=== PATIENT | female | born 1990 | race Caucasian/White ===

== ENCOUNTER 2016-12-27 00:37 | Inpatient (IN) | payer MEDICAID, OTHER ==
[~2016-12-27] VITALS: Ht 167.6 cm; Wt 99.8 kg
[2016-12-27 00:49] VITALS: BP 134/74
--- NOTE | 2016-12-27 01:26 | NUR ---
TO ER BED 6
--- NOTE | 2016-12-27 01:33 | NUR ---
PT BIB SELF C/O FEVER, BODYACHES , LOWER BACK PAIN, LOW ABD PAIN S/P N/V FOR 2 -3 DAYS. SHE TOOK TYLENOL AT 2300HOURS.SHE USED METH 2 DAYS AGO. LMP 08/25/16, UA HCG POS. NEG VAG BLEEDING, POS LOW ABD CRAMPING. PT DENIES TRUAMA; SKIN IS INTACT, PALE/WARM/DRY; AAOX4, PERRL, WITH EVEN AND STEADY GAIT; LUNGS CLEAR BL, BREATHING UNLABORED; HR EVEN AND REGULAR, BL PERIPHERAL PULSES PRESENT; BS ACTIVE X4, NO TENDERNESS TO PALPATION. PT DENIES ANY CP, SOB, OR COUGH AT THIS TIME; PT STATES 10/10 PAIN AT THIS TIME; VSS; PATIENT POSITIONED FOR COMFORT; HOB ELEVATED; BEDRAILS UP X2; BED DOWN. ER MD TO ELIZABETH, ALL ORDER EXECUTED.
--- NOTE | 2016-12-27 01:34 | NUR ---
PT ADMITED TO SMOKING METH TWO DAYS AGO. ER NOTIFTED.
--- NOTE | 2016-12-27 01:52 | NUR ---
Patient being evaluated by physician at bedside.
--- NOTE | 2016-12-27 01:55 | NUR ---
ER MD DR BRYAN AT BEDSIDE FOR EVAL
[2016-12-27] MEDS ORDERED: MORPHINE SULFATE 2 MG/ML SYR IVP ONE (02:00)
--- NOTE | 2016-12-27 02:08 | NUR ---
LAB AT BEDSIDE, BLOOD SENT, UA SENT.
[2016-12-27 02:13] LABS: HEMOGLOBIN 12.2 g/dL (12.0-16.0); RED CELL DISTRIBUTION WIDTH 14.2 % (11.6-13.7)
[2016-12-27 02:20] LABS: HEMATOCRIT 35.7 % (36-48); MEAN CORPUSCULAR HEMOGLOBIN 30 pg (27-31); MEAN CORPUSCULAR HGB CONC 34 g/dL (33-37); MEAN CORPUSCULAR VOLUME 87 fL (80-94); PLATELET COUNT (AUTO) 143 K/uL (140-450); RED BLOOD CELL COUNT(AUTO) 4.13 MIL/uL (4.20-5.40)
[2016-12-27 02:28] LABS: APPEARANCE,URINE CLOUDY (CLEAR); BILIRUBIN,URINE NEGATIVE (NEGATIVE); BLOOD, URINE 1+ (NEGATIVE); COLOR,URINE ORANGE (YELLOW); LEUKOCYTE ESTERASE ,URINE TRACE (NEGATIVE); NITRITE, URINE NEGATIVE (NEGATIVE); PROTEIN,URINE 2+ (NEGATIVE); UGLUCOSE NEGATIVE (NEGATIVE)
[2016-12-27 02:35] LABS: ALBUMIN 2.7 g/dL (3.4-5.0); ANION GAP 14.5 (8-16); CALCIUM 8.7 mg/dL (8.5-10.1); CARBON DIOXIDE 24.2 mmol/L (21-32); CREATININE 0.7 mg/dL (0.6-1.3); POTASSIUM 3.7 mmol/L (3.5-5.1); TOTAL BILIRUBIN 0.4 mg/dL (0.0-1.0)
[2016-12-27 02:41] LABS: BAND % (MANUAL) 37 % (0-8); LYMPHOCYTES % (MANUAL) 7 % (20-46); MONOCYTES % (MANUAL) 1 % (5-12); NEUTROPHILS % (MANUAL) 55 (43-65)
[2016-12-27] MEDS ORDERED: NACL 0.9% 1,000 ML IV ONE ×2 (02:55→05:00)
[2016-12-27 03:05] LABS: BACTERIA,URINE 4+ /HPF (None Seen); WBC,URINE TOO MANY TO COUNT /HPF (0-5)
[2016-12-27 03:06] LABS: MUCUS,URINE 4+ /LPF (None Seen); SQUAMOUS EPITHELIAL CELL,UR 80-100 /LPF (0-3 (FEW))
[2016-12-27 03:38] LABS: LACTIC ACID 1.2 mmol/L (0.4-2.0)
[2016-12-27] MEDS ORDERED: cefTRIAXone 1,000 MG VIAL ONE (04:43)
--- NOTE | 2016-12-27 04:47 | NUR ---
Patient appears to be resting comfortably in bed. Vital Signs within normal limits. Respirations even and unlabored.
[2016-12-27] MEDS ORDERED: ACETAMINOPHEN 325 MG TAB PO ONE (05:25)
[2016-12-27] MEDS ORDERED: DOCUSATE SODIUM 100 MG GELCAP PO PRN (05:35)
[2016-12-27] MEDS ORDERED: HYDROcodone/APAP 7.5/325 MG 1 TAB PO PRN (05:35)
[2016-12-27] MEDS ORDERED: PROMETHAZINE 25 MG/ML VIAL IVP PRN (05:35)
--- NOTE | 2016-12-27 06:04 | NUR ---
Patient will be admitted to care of DR. HERNANDEZ. Admited to TELEMETRY. Will go to room 123 B. Belongings list completed. Report to HUAN HALE.
[2016-12-27 06:10] VITALS: BP 121/55
--- NOTE | 2016-12-27 06:10 | NUR ---
Admitted from ER, with chief complaint of BODY ACHES AND FEVER, DX PYELONEPHRITIS. 26 y/o, Female, Cooperative, AOX4, AMBULATORY, ABLE TO VERBALIZE NEEDS. PT C/O FEELING VAGINAL DISCOMFORT AND FEELING BLOATED. VITAL SIGNS NOTED: 102.1 TEMP, BP121/55, 124 HR, 20 RR, 99% SPO2 AT ROOM AIR. IV ACCESS TO LEFT HAND 22G AND LEFT FOREARM 20G; IV SITES ASYMPTOMATIC, PATENT AND INTACT. IVF INFUSING WELL. oriented to call light, bed, phone,television, bathroom, smoking policy, visiting hours, procedures, ID bracelet on. Belongings list checked. SAFETY MEASURES ENSURED. CALL LIGHT WITHIN REACH. WILL ENDORSE TO AM NURSE TO FINISH ADMISSION.
[2016-12-27 07:01] LABS: PARTIAL THROMBOPLASTIN TIME 32.7 secs (22-35.6); PROTHROMBIN TIME 10.6 secs (10.8-13.4)
--- NOTE | 2016-12-27 07:22 | NUR ---
RECEIVED PT IN BED, ASLEEP. AROUSABLE TO VOICE. ALERT ORIENTED X4. NO SOB NOTED. DENIES ANY PAIN OR DISCOMFORT ATT HIS TIME. POSITIVE BOWEL SOUNDS NOTED ON FOUR QUADRANTS. PT AMBULATORY. SAFETY PRECAUTION IN PLACE. CALL LIGHT WITHIN REACH. COOLING MEASURE IN PLACE DUE TO INCREASED TEMPERATURE.
[2016-12-27 07:28] LABS: CHOL/HDL RATIO 1.7 (1-4.5); FREE T4 (FREE THYROXINE) 1.03 ng/dL (0.76-1.46); MAGNESIUM 1.5 mg/dL (1.8-2.4); PHOSPHORUS 4.3 mg/dL (2.5-4.9); THYROID STIMULATING HORMONE 0.53 uIU/mL (0.34-3.74)
--- NOTE | 2016-12-27 07:28 | NUR ---
ENDORSED PLAN OF CARE TO AM NURSE. CONDITION STABLE.
[2016-12-27 08:00] VITALS: BP 126/70
--- NOTE | 2016-12-27 08:47 | NUR ---
PT MORE AWAKE NOW. VERBALIZED SHE FEELS HER FEVER WENT DOWN. CONSUMED 50% OF HER BREAKFAST.
[2016-12-27] MEDS: MULTIVIT/MIN/CA/FE/FA 1 TAB PO SCH (08:54)
[2016-12-27] MEDS: LACTOBACILLUS RHAMNOSUS GG 1 EACH CAP PO SCH (08:54)
--- NOTE | 2016-12-27 10:21 | NUR ---
Social Service Note: Chart reviewed, no discharge needs identified. Addendum: 12/27/16 at 1059 by Abbi Glynn SS please disregard above note, wrong patient.
--- NOTE | 2016-12-27 11:30 | NUR ---
DR. YEUNG, CAME TO SEE PT. AND MADE AWARE OF THE HEART RATE OF PT RANGING FROM 125-132BPM.
[2016-12-27] MEDS: ACETAMINOPHEN 325 MG TAB PO PRN ×2 (11:41→17:38)
--- NOTE | 2016-12-27 11:45 | NUR ---
ASSISTED PT TO THE BATHROOM. AMBULATING OK, ON STAND BY ASSIST. PT HAVE A TEMPERATURE OF 102.4. MEDICATED PRN TYLENOL FOR FEVER. COOLING MEASURES PROVIDED. PT KEPT CLEAN, DRY AND COMFORTABLE. WILL MONITOR TEMPERATURE.
[2016-12-27 12:00] VITALS: BP 124/55
[2016-12-27] MEDS: NACL 0.9% 1,000 ML IV SCH ×2 (12:13→12:52)
[2016-12-27] MEDS ORDERED: ONDANSETRON 4 MG/2 ML VIAL IVP PRN (12:30)
[2016-12-27] MEDS: MORPHINE SULFATE 2 MG/ML SYR IVP PRN ×2 (12:53→17:38)
--- NOTE | 2016-12-27 13:02 | NUR ---
BROUGHT PATIENT SOME MORE ICE PACKS. PT EATING HER LUNCH RIGHT NOW TOLERATED WELL. ASKED FOR PRN PAIN MEDICATION FOR HIS GENERALIZED PAIN. RECHECKED TEMP AT 98.8. ASSISTED PT TO THE BATHROOM. PT AMBULATING OK.
--- NOTE | 2016-12-27 14:14 | NUR ---
ASSISTED PT GOING TO THE BATHROOM. PT VERBALIZED RELIEF FROM GENERALIZED BODY PAIN. AMBULATED AROUND THE HALLWAY WITH STANDBY ASSIST.
[2016-12-27 14:51] LABS: HEMATOCRIT 33.7 % (36-48); HEMOGLOBIN 11.3 g/dL (12.0-16.0); MEAN CORPUSCULAR HEMOGLOBIN 29 pg (27-31); MEAN CORPUSCULAR HGB CONC 34 g/dL (33-37); MEAN CORPUSCULAR VOLUME 87 fL (80-94); PLATELET COUNT (AUTO) 123 K/uL (140-450); RED BLOOD CELL COUNT(AUTO) 3.86 MIL/uL (4.20-5.40); RED CELL DISTRIBUTION WIDTH 14.3 % (11.6-13.7); WHITE BLOOD COUNT (AUTO) 16.9 K/uL (4.8-10.8)
[2016-12-27 15:00] LABS: ANION GAP 13.9 (8-16); CALCIUM 8.2 mg/dL (8.5-10.1); CARBON DIOXIDE 20.8 mmol/L (21-32); CREATININE 0.5 mg/dL (0.6-1.3); POTASSIUM 3.7 mmol/L (3.5-5.1)
[2016-12-27 15:12] LABS: BAND % (MANUAL) 32 % (0-8); LYMPHOCYTES % (MANUAL) 4 % (20-46); MONOCYTES % (MANUAL) 2 % (5-12); NEUTROPHILS % (MANUAL) 62 (43-65)
[2016-12-27 15:13] LABS: PLATELET ESTIMATE DECREASED
[2016-12-27 16:00] VITALS: BP 126/77
--- NOTE | 2016-12-27 17:53 | NUR ---
PT VERBALIZED SHE DOES NOT FEEL WELL AGAIN, SHE FEELS HOT AND GENERALIZED PAIN IS COMING BACK. CHECKED PT'S TEMPERATURE AT 100.4. MEDICATED TYLENOL FOR FEVER 100.4 ORDERED. AND MORPHINE 2MG IVP FOR SEVERE PAIN OF 10/10. COOLING MEASURES PROVIDED TO PT. BOYFRIEND AT BEDSIDE. WILL MONITOR TEMPERATURE.
--- NOTE | 2016-12-27 18:30 | NUR ---
RECHECKED PT'S TEMPERATURE IT WENT DOWN TO 99.6. PT COMPLAINED OF SEVERE PAIN ON HER LOWER ABDOMEN, AND PREVIOUSLY ADMINISTERED MORPHINE IVP DIDN'T HELP HER WITH HER PAIN. PT WAS SCREAMING. COMPLAINING OF CONTRACTION LIKE PAIN THAT COMES AND GOES. CALLED DR. MAX MARX AT [phone], AND MADE AWARE WITH NEW ORDERS MADE AND CARRIED OUT. CALLED L&D FOR TRANSFER PER MD ORDER. L&D WILL COME AND EVALUATE PT FIRST. WASTE WATER OPERATOR AUBREY CALLED AND SHE SAID THAT SHE WILL COME TO DO ULTRASOUND OF PATIENT, PER MD ORDER. AWAITING L&d STAFF FOR EVALUATION OF PT.
--- NOTE | 2016-12-27 19:20 | NUR ---
RECEIVED REPORT FROM HUAN HERNANDEZ AT BEDSIDE. INITIAL ASSESSMENT COMPLETED. PT AAOX4. SIGNIFICANT OTHER AT BEDSIDE. PT HAS IV ON LEFT FOREARM 20 G AND LEFT HAND 22G BOTH ASYMPTOMATIC, PATENT AND INTACT. PT'S SKIN IS INTACT. VS STABLE. ORIENTED PT TO ROOM AND SURROUNDINGS AND USE OF CALL LIGHT. EXPLAINED PLAN OF CARE TO PT AND SHE VERBALIZES UNDERSTANDING. CALL LIGHT WITHIN REACH.
[2016-12-27] MEDS ORDERED: SUCRALFATE 1 GM TAB PO PRN (19:30)
--- NOTE | 2016-12-27 19:35 | NUR ---
PT KEPT CLEAN DRY AND COMFORTABLE. STILL COMPLAINING OF ABDOMINAL DISCOMFORT. ENDORSED TO NEXT SHIFT REGARDING PLANS/ ORDER FOR TRANSFER, AND TO LET DR. MARX KNOW REGARDING RESULT OF ULTRASOUND FOR FURTHER ORDER. ENDORSED PT TO NEXT SHIFT FOR CONTINUITY OF CARE.
--- NOTE | 2016-12-27 20:25 | NUR ---
PT COMPLAINING OF HAVING CONTRACTIONS. ALLOCATIONS CLERK AT BEDSIDE.
--- NOTE | 2016-12-27 20:30 | NUR ---
PT CRYING STATING THAT SHE HAS CONTRACTIONS. CERTIFICATION OFFICER EVA STATES THAT SHE SEES PT'S CERVIX DILATED. WATER QUALITY SPECIALIST AND DR Raymundo MARX AWARE. WILL FOLLOW UP ON ORDERS.
--- NOTE | 2016-12-27 20:40 | NUR ---
DR. Autumn MARX AT BEDSIDE WITH LABOR AND DELIVERY NURSE.
--- NOTE | 2016-12-27 20:50 | NUR ---
ULTRASOUND REPORT RESULTS GIVEN TO DR. RADHA MARX. LABOR AND DELIVERY NURSE AT BEDSIDE WITH PT. LABOR AND DELIVERY NURSE ADMINISTERING MEDICATION TO STOP CONTRACTIONS.
[2016-12-27] MEDS ORDERED: TERBUTALINE 1 MG/ML VIAL SUBQ ONE (21:00)
--- NOTE | 2016-12-27 21:35 | NUR ---
PT TRANSFERRED TO LABOR AND DELIVERY. PT REFUSED TO TAKE NIGHT MEDS.
[2016-12-27] MEDS ORDERED: LACTATED RINGERS 1,000 ML IV SCH (22:00)
[2016-12-27] MEDS ORDERED: MORPHINE SULFATE 10 MG/ML SYR IVP PRN (23:15)
[2016-12-27] MEDS ORDERED: MORPHINE SULFATE 10 MG/ML SYR ONE (23:47)
[2016-12-28 00:57] VITALS: BP 130/68
[2016-12-28] MEDS ORDERED: OXYTOCIN 20 UNITS/LR PREMIX 1,000 ML IV ONE ×2 (05:40→08:06)
--- NOTE | 2016-12-28 06:53 | NUR ---
PATIENT HAS BEEN SCREENED AND CATEGORIZED HIGH NUTRITION RISK. PATIENT WILL BE SEEN WITHIN 1-2 DAYS OF ADMISSION. 12/27/16-12/28/16 PREMA WATTS MS, RDN
[2016-12-28] MEDS ORDERED: CARBOPROST 250 MCG/ML AMP IM ONE (06:56)
[2016-12-28 07:04] LABS: HEMATOCRIT 30.3 % (36-48); HEMOGLOBIN 10.1 g/dL (12.0-16.0); MEAN CORPUSCULAR HEMOGLOBIN 29 pg (27-31); MEAN CORPUSCULAR HGB CONC 33 g/dL (33-37); MEAN CORPUSCULAR VOLUME 87 fL (80-94); PLATELET COUNT (AUTO) 124 K/uL (140-450); RED CELL DISTRIBUTION WIDTH 14.7 % (11.6-13.7); WHITE BLOOD COUNT (AUTO) 11.1 K/uL (4.8-10.8)
--- NOTE | 2016-12-28 07:15 | NUR ---
PATIENT WAS INITIALLY SCREENED HIGH AND THEN PATIENT WAS TRANSFERRED TO L& AFTER INITIAL SCREEN WAS DONE. RESCREEN ADDENDUM: PATIENT HAS BEEN RESCREENED AND RE-CATEGORIZED LOW RISK D/T PATIENT TRANSFERRED TO L&D. PATIENT WILL BE SEEN WITHIN 1-2 DAYS OF CHANGE IN MEDICAL STATUS. 02/26/16-02/27/16 BETTY WATTS MS, RDN Addendum: 12/28/16 at [address] PATIENT WAS INITIALLY SCREENED HIGH AND THEN PATIENT WAS TRANSFERRED TO L& AFTER INITIAL SCREEN WAS DONE. RESCREEN ADDENDUM: PATIENT HAS BEEN RESCREENED AND RE-CATEGORIZED LOW RISK D/T PATIENT TRANSFERRED TO L&D. PATIENT WILL BE SEEN WITHIN 1-2 DAYS OF CHANGE IN MEDICAL STATUS. 12/29/16-12/30/16 BETTY WATTS MS, RDN
[2016-12-28 07:21] LABS: ANION GAP 12.7 (8-16); CALCIUM 7.6 mg/dL (8.5-10.1); CARBON DIOXIDE 21.8 mmol/L (21-32); CREATININE 0.5 mg/dL (0.6-1.3); POTASSIUM 3.5 mmol/L (3.5-5.1)
[2016-12-28 07:26] LABS: MAGNESIUM 1.4 mg/dL (1.8-2.4); PHOSPHORUS 2.2 mg/dL (2.5-4.9)
[2016-12-28] MEDS ORDERED: SEVOFLURANE 250 ML BTL INH ONE (08:03)
[2016-12-28] MEDS ORDERED: ONDANSETRON 4 MG/2 ML VIAL ONE (08:03)
[2016-12-28] MEDS ORDERED: KETOROLAC 30 MG/ML VIAL ONE (08:03)
[2016-12-28] MEDS ORDERED: PROPOFOL 200 MG/20 ML VIAL IV ONE (08:03)
[2016-12-28] MEDS ORDERED: DEXAMETHASONE 4 MG/ML VIAL ONE (08:03)
[2016-12-28] MEDS ORDERED: MORPHINE SULFATE 4 MG/ML SYR IM/IVP PRN (08:10)
[2016-12-28] MEDS ORDERED: ONDANSETRON 4 MG/2 ML VIAL IVP PRN (08:10)
[2016-12-28] MEDS ORDERED: IBUPROFEN 800 MG TAB PO PRN (08:10)
[2016-12-28] MEDS ORDERED: ACETAMINOPHEN/CODEINE 300/30MG 1 TAB PO PRN (08:10)
[2016-12-28] MEDS ORDERED: fentaNYL 0.05 MG/ML VIAL ONE (08:16)
[2016-12-28 08:54] LABS: BAND % (MANUAL) 19 % (0-8); LYMPHOCYTES % (MANUAL) 5 % (20-46); MONOCYTES % (MANUAL) 2 % (5-12); NEUTROPHILS % (MANUAL) 74 (43-65); PLATELET ESTIMATE ADEQUATE
[2016-12-28 10:21] LABS: T4 (THYROXINE) 11.1 ug/dL (4.5-12.0)
[2016-12-28] MEDS: LACTOBACILLUS RHAMNOSUS GG 1 EACH CAP PO SCH (12:00)
[2016-12-28] MEDS: PANTOPRAZOLE 40 MG TABEC PO SCH (12:00)
[2016-12-28] MEDS: DOCUSATE SODIUM 100 MG GELCAP PO SCH ×2 (12:00→21:00)
[2016-12-28 12:23] LABS: HEMOGLOBIN A1C 5.4 % (4.8-5.6)
--- NOTE | 2016-12-28 14:37 | NUR ---
Social Service Note: I was informed by HUAN Campbell, patient was requesting to speak with me because she was unsure if she should have a service for her baby. I met with patient at bedside. She stated she is waiting for her significant other to come to hospital so they can decide if they want to make burial arrangements or not. She inquired how much it cost for a burial and cremation. I offered to call one of the homes , she stated she would appreciate if I did. I called [facility] and spoke with Lucy. Per Lucy, the cost of a burial is about $1,200 excluding services and cemetery and about $900 for cremation, excluding services, I provided patient with this information. I also provided her with a list of homes. She thanked me and stated she would like her nurse know her decision once she speaks with her significant other, I informed patient's nurse Miroslava of this.
[2016-12-28] MEDS ORDERED: MAGNESIUM OXIDE 400 MG TAB PO ONE (17:15)
[2016-12-29 07:24] LABS: HEMATOCRIT 27.7 % (36-48); MEAN CORPUSCULAR HEMOGLOBIN 28 pg (27-31); MEAN CORPUSCULAR HGB CONC 33 g/dL (33-37); MEAN CORPUSCULAR VOLUME 87 fL (80-94); PLATELET COUNT (AUTO) 132 K/uL (140-450); RED BLOOD CELL COUNT(AUTO) 3.19 MIL/uL (4.20-5.40); RED CELL DISTRIBUTION WIDTH 14.6 % (11.6-13.7); WHITE BLOOD COUNT (AUTO) 10.4 K/uL (4.8-10.8)
[2016-12-29 07:39] LABS: MAGNESIUM 1.7 mg/dL (1.8-2.4); PHOSPHORUS 2.9 mg/dL (2.5-4.9)
[2016-12-29 08:13] LABS: NEUTROPHILS % (MANUAL) 66 (43-65)
[2016-12-29 08:14] LABS: BAND % (MANUAL) 16 % (0-8)
[2016-12-29 08:15] LABS: LYMPHOCYTES % (MANUAL) 16 % (20-46)
[2016-12-29 08:16] LABS: PLATELET ESTIMATE SLIGHTLY DECREASED
[2016-12-29] MEDS: LACTOBACILLUS RHAMNOSUS GG 1 EACH CAP PO SCH (09:00)
[2016-12-29] MEDS: MULTIVIT/MIN/CA/FE/FA 1 TAB PO SCH (09:00)
[2016-12-29] MEDS: DOCUSATE SODIUM 100 MG GELCAP PO SCH (09:00)
[2016-12-29] MEDS: PANTOPRAZOLE 40 MG TABEC PO SCH ×2 (09:00→17:57)
--- NOTE | 2016-12-29 09:19 | NUR ---
PATIENT HAS BEEN RESCREENED AND RE-CATEGORIZED HIGH RISK D/T PATIENT DX OF SEPSIS. PATIENT WILL BE SEEN WITHIN 1-2 DAYS OF ADMISSION. NACHO FERRIS, ANTONINO 12/28/16-12/29/16
[2016-12-29] MEDS ORDERED: MAGNESIUM OXIDE 400 MG TAB PO SCH (11:15)
[2016-12-29] MEDS ORDERED: AMPI500C49 PO (11:28)
[2016-12-29] MEDS ORDERED: IBUP-2213 PO (11:35)
[2016-12-29 12:14] LABS: AMPHETAMINE, URINE NEG. ng/ml (NEG <=1000); BARBITURATE, URINE NEG. ng/ml (NEG <=200); BENZODIAZEPINE, URINE NEG. ng/mL (NEG <=200); CANNABINOID, URINE NEG. ng/mL (NEG <=50); COCAINE, URINE NEG. ng/mL (NEG <=300); OPIATE, URINE NEG. ng/mL (NEG <=2000); PHENCYCLIDINE SCREEN,URINE NEG. ng/mL (NEG <=25)
== END 2016-12-29 20:30 | disposition home or self-care (01) | DRG 767 ==
LOC: MED 00:37 → MTU 05:44 → MFCC 21:37 → MLD 21:45 → MFCC 12-28 09:15
PROVIDERS: ADMIT Family Medicine; ATTEND Family Medicine
PROC: 10D17ZZ Extraction of Products of Conception, Retained, Via Natural or Artificial Opening (ICD-10-PCS; principal; 2016-12-28 07:00)
DX: O98.812 Other maternal infectious and parasitic diseases complicating pregnancy, second trimester (principal); Z37.1 Single stillbirth; A41.9 Sepsis, unspecified organism; E43 Unspecified severe protein-calorie malnutrition; N17.0 Acute kidney failure with tubular necrosis; E87.1 Hypo-osmolality and hyponatremia; O23.02 Infections of kidney in pregnancy, second trimester; O26.832 Pregnancy related renal disease, second trimester; O02.1 Missed abortion; O03.4 Incomplete spontaneous abortion without complication; O26.892 Other specified pregnancy related conditions, second trimester; O99.282 Endocrine, nutritional and metabolic diseases complicating pregnancy, second trimester; R80.9 Proteinuria, unspecified; R31.9 Hematuria, unspecified; O32.8XX0 Maternal care for other malpresentation of fetus, not applicable or unspecified; E83.39 Other disorders of phosphorus metabolism; E83.42 Hypomagnesemia; E66.01 Morbid (severe) obesity due to excess calories; O99.212 Obesity complicating pregnancy, second trimester; O25.12 Malnutrition in pregnancy, second trimester; Z68.35 Body mass index [BMI] 35.0-35.9, adult; Z3A.19 19 weeks gestation of pregnancy
CPT/HCPCS: 36415; 76770; 76805; 80048; 80053; 80305; 81001; 81025; 82150; 83036; 83605; 83690; 83735; 83880; 84100; 84436; 84439; 84443; 84479; 84702; 85025; 85610; 85730; 86886; 86900; 86901; 87040; 87081; 87086; 87491; 87804; 93005; 96374; 99285; J0696; J1100; J1885; J2270; J2405; J2590; J2704; J3010; J3105; J3490; J7030; J7060; J7120; Q0092

== ENCOUNTER 2019-06-02 23:51 | Emergency (ER) | payer SELFPAY ==
[~2019-06-02] VITALS: Ht 167.6 cm; Wt 99.8 kg
[~2019-06-02 23:51] MED LIST: AMPI500C49 PO; IBUP-2213 PO
[2019-06-02 23:58] VITALS: BP 137/89
--- NOTE | 2019-06-03 00:23 | NUR ---
28 Y/O F PRESENTS TO ER C/O FEVER, COUGH, BODY ACHES, BILATERAL EAR PAIN AND RUNNY NOSE SINCE FRIDAY. PAIN LEVEL FOR BODY ACHES AND SORE THROAT, 01/06. PT TOOK TYLENOL 500MG AT 9PM, WITH MILD RELIEF. HOB ELEVATED, BED IN LOWEST POSITION, BED RAIL UP X1. WAITING FOR ERMD TO EVALUATE PT. ALLERGIES: NKA MED HX: NONE
--- NOTE | 2019-06-03 00:36 | NUR ---
DR. MYERS EVALUATING PT AT BEDSIDE
--- NOTE | 2019-06-03 00:45 | NUR ---
PT AMBULATED TO RESTROOM TO PROVIDE URINE SAMPLE
[2019-06-03] MEDS ORDERED: NACL 0.9% 1,000 ML IV ONE (00:55)
[2019-06-03] MEDS ORDERED: KETOROLAC 30 MG/ML VIAL IVP ONE (00:55)
[2019-06-03] MEDS ORDERED: ALBUTEROL SULFATE/IPRATROPIU 3 ML SOL IH ONE (00:55)
[2019-06-03 01:15] LABS: BASOPHILS % (AUTO) 0.2 % (0.0-2.0); EOSINOPHILS % (AUTO) 0.4 % (0.0-4.0); HEMATOCRIT 37.6 % (36-48); HEMOGLOBIN 12.1 g/dL (12.0-16.0); LYMPHOCYTES # (AUTO) 2.3 K/uL (2.5-16.5); LYMPHOCYTES % (AUTO) 23.5 % (20.5-51.1); MEAN CORPUSCULAR HEMOGLOBIN 26 pg (27-31); MEAN CORPUSCULAR HGB CONC 32 g/dL (33-37); MEAN CORPUSCULAR VOLUME 79.2 fL (80-94); MONOCYTES # (AUTO) 0.5 K/uL (0.8-1.0); MONOCYTES % (AUTO) 4.6 % (1.7-9.3); NEUTROPHILS % (AUTO) 71.3 % (42.2-75.2); PLATELET COUNT (AUTO) 187 K/uL (140-450); RED BLOOD CELL COUNT(AUTO) 4.75 MIL/uL (4.20-5.40); RED CELL DISTRIBUTION WIDTH 18.2 % (11.6-13.7); WHITE BLOOD COUNT (AUTO) 9.7 K/uL (4.8-10.8)
[2019-06-03 01:17] LABS: APPEARANCE,URINE SL CLOUDY (CLEAR); BILIRUBIN,URINE NEGATIVE (NEGATIVE); BLOOD, URINE NEGATIVE (NEGATIVE); COLOR,URINE YELLOW (YELLOW); LEUKOCYTE ESTERASE ,URINE NEGATIVE (NEGATIVE); NITRITE, URINE POSITIVE (NEGATIVE); UGLUCOSE NEGATIVE (NEGATIVE)
--- NOTE | 2019-06-03 01:26 | NUR ---
PT TAKEN TO RADIOLOGY
[2019-06-03 01:28] LABS: CARBON DIOXIDE 24.8 mmol/L (21-32); CREATININE 0.6 mg/dL (0.6-1.3); POTASSIUM 3.8 mmol/L (3.5-5.1)
[2019-06-03 01:30] LABS: RBC,URINE 0-5 /HPF (0-5)
--- NOTE | 2019-06-03 02:10 | NUR ---
PT IS SITTING UP IN BED, VSS. COMFORT MEASURES OFFERED, PT TOLERATED WELL. NO PAIN AT THIS TIME, 0/10.
[2019-06-03 02:38] VITALS: BP 137/89
--- NOTE | 2019-06-03 02:38 | NUR ---
Patient discharged with v/s stable. Written and verbal after care instructions given and explained. Patient alert, oriented and verbalized understanding of instructions. Ambulatory with steady gait. All questions addressed prior to discharge. ID band removed. Patient advised to follow up with PMD. Rx of IBUPROFEN, OMNICEF, ALBUTEROL, ZOFRAN WAS given. Patient educated on indication of medication including possible reaction and side effects. Opportunity to ask questions provided and answered. PT STATED THAT SHE HAD NO PAIN PRIOR TO D/C
--- NOTE | 2019-06-05 18:57 | NUR ---
as per ---stop current medication and start cipro will call into pharmacy [facility] in [facility] as requested by pt
== END 2019-06-03 02:38 | disposition home or self-care (01) ==
LOC: MED 23:51
DX: N39.0 Urinary tract infection, site not specified (principal); J11.1 Influenza due to unidentified influenza virus with other respiratory manifestations; J18.9 Pneumonia, unspecified organism; Z79.2 Long term (current) use of antibiotics; Z79.1 Long term (current) use of non-steroidal anti-inflammatories (NSAID)
CPT/HCPCS: 36415; 71046; 80048; 81001; 81025; 84703; 85025; 87086; 87186; 96374; 99284; J1885; J7620

== ENCOUNTER 2019-07-02 21:16 | Emergency (ER) | payer SELFPAY ==
[~2019-07-02] VITALS: Ht 167.6 cm; Wt 108.9 kg
--- NOTE | 2019-07-02 21:27 | NUR ---
TO LOBBY A/W BED AMBULATORY
--- NOTE | 2019-07-02 21:35 | NUR ---
PT AMBULATED TO BED 11
--- NOTE | 2019-07-02 21:51 | NUR ---
PT ASSESSMENT COMPLETE. BED IN LOWEST POSITION. BEDRAIL X1UP. WILL CONTINUE TO MONITOR.
[2019-07-02] MEDS ORDERED: NAPROXEN 500 MG TAB PO STA (22:29)
[2019-07-02] MEDS ORDERED: NACL 0.9% 1,000 ML IV ONE (22:30)
[2019-07-02] MEDS ORDERED: diphenhydrAMINE 50 MG/ML VIAL IVP ONE (22:30)
[2019-07-02] MEDS ORDERED: METOCLOPRAMIDE 10 MG/2 ML INJ VIAL IVP ONE (22:30)
[2019-07-02 23:15] LABS: BASOPHILS # (AUTO) 0.1 K/uL (0.00-0.22); BASOPHILS % (AUTO) 0.6 % (0.0-2.0); EOSINOPHILS # (AUTO) 0.3 K/uL (0-0.4); EOSINOPHILS % (AUTO) 2.6 % (0.0-4.0); HEMATOCRIT 38.7 % (36-48); HEMOGLOBIN 12.4 g/dL (12.0-16.0); LYMPHOCYTES # (AUTO) 2.7 K/uL (2.5-16.5); LYMPHOCYTES % (AUTO) 26.3 % (20.5-51.1); MEAN CORPUSCULAR HEMOGLOBIN 26 pg (27-31); MEAN CORPUSCULAR HGB CONC 32 g/dL (33-37); MEAN CORPUSCULAR VOLUME 79.2 fL (80-94); MONOCYTES # (AUTO) 0.5 K/uL (0.8-1.0); MONOCYTES % (AUTO) 4.7 % (1.7-9.3); NEUTROPHILS # (AUTO) 6.7 K/uL (1.8-7.7); NEUTROPHILS % (AUTO) 65.8 % (42.2-75.2); PLATELET COUNT (AUTO) 217 K/uL (140-450); RED BLOOD CELL COUNT(AUTO) 4.89 MIL/uL (4.20-5.40); RED CELL DISTRIBUTION WIDTH 18.1 % (11.6-13.7); WHITE BLOOD COUNT (AUTO) 10.2 K/uL (4.8-10.8)
[2019-07-02 23:30] LABS: ANION GAP 10.3 (8-16); CARBON DIOXIDE 28.8 mmol/L (21-32); CREATININE 0.8 mg/dL (0.6-1.3); POTASSIUM 4.1 mmol/L (3.5-5.1)
[2019-07-02 23:36] LABS: ALBUMIN 3.5 g/dL (3.4-5.0); TOTAL BILIRUBIN 0.1 mg/dL (0.0-1.0)
--- NOTE | 2019-07-02 23:45 | NUR ---
PT SEEN WITH EYES CLOSED. VISIBLE CHEST RISE AND FALL NOTED. WILL CONTINUE TO MONITOR.
[2019-07-03 00:28] VITALS: BP 127/85
== END 2019-07-03 02:41 | disposition home or self-care (01) ==
LOC: MED 21:16
DX: F07.81 Postconcussional syndrome (principal); Z79.899 Other long term (current) drug therapy
CPT/HCPCS: 36415; 70450; 80053; 81025; 85025; 96374; 96375; 99284; J1200; J2765

== ENCOUNTER 2019-12-22 14:26 | Emergency (ER) | payer SELFPAY ==
[~2019-12-22] VITALS: Ht 165.1 cm; Wt 110.7 kg
[2019-12-22 14:35] VITALS: BP 139/102
[2019-12-22] MEDS ORDERED: AZITHROMYCIN 250 MG TAB PO ONE (14:50)
[2019-12-22] MEDS ORDERED: cefTRIAXone 250 MG in LIDOCAINE MPF 1% 0.9 ML IM ONE (14:50)
[2019-12-22] MEDS ORDERED: cefTRIAXone 250 MG VIAL ONE (14:55)
[2019-12-22] MEDS ORDERED: LIDOCAINE MPF 1% 5 ML ONE (14:55)
--- NOTE | 2019-12-22 15:04 | NUR ---
zithromax and rocephin administered
--- NOTE | 2019-12-22 15:06 | NUR ---
PT STATES HER PARTNER HAS PENILE DISCHARGE. SHE AND HER PARTNER RECENTLY HAD UNPROTECTED SEX. PT WOULD LIKE TO BE TESTED FOR STDS. PT DENIES STD S/S. STATES NO VAGINAL DISCHARGE OR PAIN. PT ALERT AND AWAKE, PT AMBULTORY PMH- DENIES
[2019-12-22 15:17] VITALS: BP 142/91
--- NOTE | 2019-12-22 15:17 | NUR ---
NADR, PAIN 0/10
--- NOTE | 2019-12-22 15:17 | NUR ---
Patient discharged with v/s stable. Written and verbal after care instructions given and explained. Patient verbalized understanding. Ambulatory with steady gait. All questions addressed prior to discharge. Advised to follow up with PMD. PT INSTRUCTED ON USE OF SAFE SEX INCLUDING USE OF CONDOMS
== END 2019-12-22 15:17 | disposition home or self-care (01) ==
LOC: MED 14:26
DX: Z11.3 Encounter for screening for infections with a predominantly sexual mode of transmission (principal); Z79.899 Other long term (current) drug therapy
CPT/HCPCS: 96372; 99283; J0696; J2001; 36415

== ENCOUNTER 2020-10-25 13:28 | Emergency (ER) | payer SELFPAY ==
[~2020-10-25] VITALS: Ht 167.6 cm; Wt 107.0 kg
[2020-10-25 13:48] VITALS: BP 145/79
--- NOTE | 2020-10-25 13:52 | NUR ---
Patient ambulated to bed 11 with steady/even gait.
--- NOTE | 2020-10-25 13:58 | NUR ---
30 y/o F coming in from home with c/c abscess to her left buttock x 4 days. Patient reports she was staying at a [employer] on Friday night and states she noticed a pimple/infection to her left buttock region. Patient states it is "hard like a pimple," and states it progressively worsen since; rates pain 10/10 burning, aching, intermittent, non-radiating. Patient states it worsens when she sits down and presents laying on on left side. Patient visited [facility] and states she AMA'd due to long wait times. Patient denies fever, chills, N/V/D, chest pain, SOB, cough, abdominal pain, back pain. Patient admits to recent drug use - meth last night, denies any drug or alcohol today. Patient placed onto rn cardiac rehab. Bed locked in lowest position, side rails x 1, call light in reach. PMH/Meds: Denies Sx: D&C 2016; 2017 NKA
--- NOTE | 2020-10-25 14:00 | NUR ---
JULIANA Burkett with female RN sulfide head operator.
--- NOTE | 2020-10-25 14:00 | NUR ---
JULIANA Burkett is evaluating patient at bedside.
[2020-10-25] MEDS ORDERED: NAPR-54 PO (14:08)
[2020-10-25] MEDS ORDERED: CEPH-588 PO (14:08)
[2020-10-25] MEDS ORDERED: HYDROcodone/APAP 5/325 MG 1 TAB TAB PO ONE (14:10)
[2020-10-25 14:20] VITALS: BP 145/79
--- NOTE | 2020-10-25 14:20 | NUR ---
Patient discharged prior to medication administration.
--- NOTE | 2020-10-25 14:20 | NUR ---
Patient discharged with v/s stable. Written and verbal after care instructions given and explained. Patient alert, oriented and verbalized understanding of instructions. Ambulatory with steady gait. All questions addressed prior to discharge. ID band removed. Patient advised to follow up with PMD. Rx of Cephalexin, Naproxen given. Patient educated on indication of medication including possible reaction and side effects. Opportunity to ask questions provided and answered.
== END 2020-10-25 14:20 | disposition home or self-care (01) ==
LOC: MED 13:28
DX: L02.31 Cutaneous abscess of buttock (principal); Z79.1 Long term (current) use of non-steroidal anti-inflammatories (NSAID); Z79.2 Long term (current) use of antibiotics; Z98.890 Other specified postprocedural states
CPT/HCPCS: 99283